=== PATIENT | male | born 1975 ===

== ENCOUNTER 2020-09-10 23:21 | Emergency (ER) | payer BC, OTHER ==
[2020-09-10 23:41] VITALS: BP 133/86; PULSE 96; RESP 18; TEMP 98.4
[2020-09-11] MEDS ORDERED: methylPREDNISolone SOD SUCCI 125 MG/2 ML VIAL IM ONE (00:41)
[2020-09-11] MEDS ORDERED: KETOROLAC 15 MG/ML 1 ML VIAL IM STA (00:41)
--- NOTE | 2020-09-11 00:45 | ED ---
Skin/Abscess/FB HPI - General Chief complaint: Skin/Abscess/Foreign Body Stated complaint: Rash Time Seen by Provider: 09/10/20 23:22 Source: patient Mode of arrival: ambulatory Limitations: no limitations - History of Present Illness Initial comments: 44 year-old male patient presents to the emergency department for evaluation of rash to the left hand and arm. Patient states 4 days ago he killed a caterpillar that was on his back. States that shortly after developed bumps and stinging to the hand and back. States that he now has bumbs and blisters spread over his left forearm and across his upper back. States there are sharp shooting pains from the rash. Denies any drainage. Denies fever or chills. States there is some itching but mostly pain. Has been applying cortisone 10 and aloe to the area. Denies any other known exposures. Denies coming into contact with poison meek or other trees/plants. - Related Data Previous Rx's Medication Instructions Recorded predniSONE 0 mg PO DIRECTED #45 tab 09/11/20 Allergies Allergy/AdvReac Type Severity Reaction Status Date / Time No Known Allergies Allergy Verified 09/10/20 23:41 Review of Systems ROS Statement: Those systems with pertinent positive or pertinent negative responses have been documented in the HPI. ROS Other: All systems not noted in ROS Statement are negative. Past Medical History Past Medical History: No Reported History History of Any Multi-Drug Resistant Organisms: None Reported Past Surgical History: No Surgical Hx Reported Smoking Status: Never smoker Past Alcohol Use History: None Reported Past Drug Use History: None Reported General Exam Limitations: no limitations General appearance: alert, in no apparent distress, other (Physical well- developed, well-nourished adult male patient in no acute distress. Vital signs upon presentation temperature 98.4F, pulse 96, respirations 18, blood pressure 133/86, pulse ox 96% on room air.) Respiratory exam: Present: normal lung sounds bilaterally. Absent: respiratory distress, wheezes, rales, rhonchi, stridor Cardiovascular Exam: Present: regular rate, normal rhythm, normal heart sounds. Absent: systolic murmur, diastolic murmur, rubs, gallop, clicks GI/Abdominal exam: Present: soft, normal bowel sounds. Absent: distended, tenderness, guarding, rebound, rigid Extremities exam: Present: full ROM, normal capillary refill, other (Vesicular rash with surrounding swelling and erythema over the left palm and extending up the medial forearm. Some sattelite lesions to the left upper arm. Skin is otherwise pink, warm, dry. Cap refill less than 3 seconds. Radial pulses 2+.). Absent: normal inspection, tenderness, pedal edema, joint swelling, calf tenderness Back exam: Present: rash noted (Small patch of vesicular rash with surrounding erythema noted to the mid upper back. No drainage.) Neurological exam: Present: alert, oriented X3, CN II-XII intact Psychiatric exam: Present: normal affect, normal mood Skin exam: Present: warm, dry, intact, normal color. Absent: rash Course Vital Signs 09/10/20 09/11/20 23:38 01:13 Temperature 98.4 F Pulse Rate 96 Respiratory 18 18 Rate Blood Pressure 133/86 O2 Sat by Pulse 96 98 Oximetry Medical Decision Making - Medical Decision Making 44-year-old male patient presents to the emergency department today for evaluation of rash to the left hand, arm, upper back after coming into contact with a caterpillar. Physical examination did reveal vesicular rash with surrounding erythema and swelling to the left hand, forearm, upper back. Patient is instructed to continue applying cortisone cream to the area. He'll be given injections of Toradol and Solu-medrol. He will be given steroid prescription. He is instructed to follow-up the primary care physician for recheck in 1-2 days. Return parameters discussed in detail. He verbalizes understanding and agrees with this plan. Case discussed with my attending Dr. Nye. Disposition Clinical Impression: Contact dermatitis Disposition: HOME SELF-CARE Condition: Good Instructions (If sedation given, give patient instructions): Contact Dermatitis (ED) Additional Instructions: Apply cool compresses. Continue applying cortisone 10. Take ibuprofen for pain control. Complete steroid prescription in full. Follow-up with her primary care physician for recheck in 1-2 days. Return to the emergency department for any new, worsening, or concerning symptoms. Prescriptions: predniSONE 0 mg PO DIRECTED #45 tab Is patient prescribed a controlled substance at d/c from ED?: No Referrals: None,Stated [Primary Care Provider] - 1-2 days Time of Disposition: 00:45
== END 2020-09-11 01:00 | disposition home or self-care (01) ==
LOC: EC 23:21
DX: L25.9 Unspecified contact dermatitis, unspecified cause (principal)
CPT/HCPCS: 99282